=== PATIENT | female | born 1960 | race Two or more races ===

== ENCOUNTER 2024-07-06 17:55 | Emergency (ER) | payer OTHER, BC ==
[~2024-07-06] VITALS: Ht 167.6 cm; Wt 70.5 kg
[2024-07-06 18:55] VITALS: BP 135/75; PULSE 99; RESP 18; TEMP 97.8; O2SAT 98
[2024-07-06] MEDS: KETOROLAC TROMETH 60MG/2ML VIAL IM ONE (19:06)
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
[2024-07-06] MEDS ORDERED: HYDR-4902 PO (20:01)
[2024-07-06] MEDS ORDERED: IBUP-1455 PO (20:01)
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
== END 2024-07-06 20:20 | disposition home or self-care (01) ==
LOC: ER 17:55 → EDBD 17:55 → ER 20:20
DX: S20.219A Contusion of unspecified front wall of thorax, initial encounter (principal); S20.20XA Contusion of thorax, unspecified, initial encounter; V89.2XXA Person injured in unspecified motor-vehicle accident, traffic, initial encounter; Y93.89 Activity, other specified; Y92.89 Other specified places as the place of occurrence of the external cause; Y99.8 Other external cause status
CPT/HCPCS: 71046; 71101; 96372; 99284; J1885